=== PATIENT | male | born 1965 | race Caucasian/White ===

== ENCOUNTER 2023-07-24 16:16 | Emergency (ER) | payer SELFPAY ==
[2023-07-24] MEDS ORDERED: Nitrostat 0.4 MG (ED) SL ONE ×2 (16:20→16:37)
[2023-07-24] MEDS ORDERED: BABY ASPIRIN 81 MG CHEW PO ONE (16:20)
[2023-07-24] MEDS ORDERED: Sodium Chloride 0.9% 1000 ML 1,000 ML ONE (16:25)
[2023-07-24] MEDS: Sodium Chloride 0.9% 1000 ML 1,000 ML IV SCH ×2 (16:26→16:32)
--- NOTE | 2023-07-24 16:28 | ERPHSYRPT ---
- History of Present Illness Time Seen by Provider: 07/24/23 16:23 Historian: patient, family Exam Limitations: no limitations Physician History: pt states hx prior [facility] - no stents. 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 Pain x 35 minutes, no meds. SOBreath diaphoretic. Ext without edema. Nontender abd. Chest clear. EKG with ST dep. no cough. Quality: burning, fullness, pressure, tightness Location: substernal, shoulder Chest Pain Radiation: arm Severity of Pain-Max: moderate Severity of Pain-Current: moderate Associated Symptoms: nausea, shortness of breath Prior Chest Pain/Cardiac Workup: heart attack Nitro Today/Relief: 0.4 mg x 1, provided by ED Aspirin Treatment Today: 81 mg x 4, provided by ED Allergies/Adverse Reactions: No Known Drug Allergies Allergy (Verified 07/24/23 16:30) Home Medications: No Reportable Medications [No Reported Medications] 07/24/23 [History] - Review of Systems Constitutional: No Fever, No Chills Eyes: No Symptoms Ears, Nose, & Throat: No Symptoms Respiratory: No Cough, No Dyspnea Cardiac: Chest Pain, No Edema, No Syncope Abdominal/Gastrointestinal: Nausea, No Abdominal Pain, No Vomiting, No Diarrhea Genitourinary Symptoms: No Dysuria Musculoskeletal: No Back Pain, No Neck Pain Skin: No Symptoms, No Rash Neurological: No Dizziness, No Focal Weakness, No Sensory Changes Psychological: No Symptoms Endocrine: No Symptoms Hematologic/Lymphatic: No Symptoms Immunological/Allergic: No Symptoms All Other Systems: Reviewed and Negative - Past Medical History Pertinent Past Medical History: Yes Cardiac History: Myocardial Infarction ([facility]) - Nursing Vital Signs Nursing Vital Signs: Initial Vital Signs Temperature 97.2 F 07/24/23 16:17 Pulse Rate 92 H 07/24/23 16:17 Respiratory Rate 22 07/24/23 16:17 Blood Pressure 256/137 07/24/23 16:17 O2 Sat by Pulse Oximetry 98 07/24/23 16:17 Pain Scale Pain Intensity 4 - Physical Exam General Appearance: moderate distress, alert Eye Exam: PERRL/EOMI, eyes nml inspection Ears, Nose, Throat Exam: normal ENT inspection, moist mucous membranes Neck Exam: normal inspection, non-tender, supple, full range of motion Respiratory Exam: normal breath sounds, lungs clear, No respiratory distress Cardiovascular Exam: regular rate/rhythm, normal heart sounds Gastrointestinal/Abdomen Exam: soft, No tenderness, No mass Rectal Exam: deferred Back Exam: normal inspection, No CVA tenderness, No vertebral tenderness Extremity Exam: normal inspection, normal range of motion Neurologic Exam: alert, oriented x 3, cooperative, normal mood/affect, sensation nml, No motor deficits Skin Exam: normal color, warm, dry SpO2 Interpretation: normal SpO2: 96 O2 Delivery: Room Air - Course Nursing assessment & vital signs reviewed: Yes EKG Interpreted by Me: Sinus Rhythm, prolonged QT interval, Ischemic ST-T changes, Other (LVH) Ordered Tests: Active Orders 24 hr Category Date Time Status Sheep Farmer STAT Care 07/24/23 16:21 Active Pulse Oximetry (ED) STAT Care 07/24/23 16:20 Active CHEST 1 VIEW (PORTABLE) Stat Exams 07/24/23 16:21 Taken AMYLASE Stat Lab 07/24/23 16:10 Completed CBC W DIFF Stat Lab 07/24/23 16:10 Completed CK-Creatinine Phosphokinase Stat Lab 07/24/23 16:10 Completed CMP Stat Lab 07/24/23 16:10 Completed D-DIMER QUANTITATIVE Stat Lab 07/24/23 16:10 Completed LIPASE Stat Lab 07/24/23 16:10 Completed Lactic Acid Stat Lab 07/24/23 16:25 Completed NT PRO BNPII Stat Lab 07/24/23 16:10 Completed TROPONIN Q4H Lab 07/24/23 16:10 Completed TROPONIN Q4H Lab 07/24/23 20:30 Ordered TROPONIN Q4H Lab 07/25/23 00:30 Ordered UA W/RFX UR CULTURE Stat Lab 07/24/23 16:21 Ordered Medication Summary Generic Name Dose Route Start Last Admin Trade Name Freq PRN Reason Stop Dose Admin Sodium Chloride 1,000 mls @ 100 mls/hr 07/24/23 16:30 07/24/23 16:32 Sodium Chloride 0.9% 1000 Ml IV 08/23/23 16:29 100 mls/hr .Q10H CASE Administration Discontinued Medications Generic Name Dose Route Start Last Admin Trade Name Freq PRN Reason Stop Dose Admin Aspirin 324 mg 07/24/23 16:20 07/24/23 16:26 Aspirin 81 Mg Tab.Chew PO 07/24/23 16:21 Not Given STAT ONE Diphenhydramine HCl 25 mg 07/24/23 16:38 07/24/23 16:42 Diphenhydramine Hcl 50 Mg/Ml Vial IV 07/24/23 16:39 25 mg STAT ONE Administration Diphenhydramine HCl Confirm 07/24/23 16:42 Diphenhydramine Hcl 50 Mg/Ml Vial Administered 07/24/23 16:43 Dose 50 mg .ROUTE .STK-MED ONE Morphine Sulfate 4 mg 07/24/23 16:38 07/24/23 16:40 Morphine Sulfate 4 Mg/Ml Injection IV 07/24/23 16:39 4 mg STAT ONE Administration Morphine Sulfate Confirm 07/24/23 16:39 Morphine Sulfate 4 Mg/Ml Injection Administered 07/24/23 16:40 Dose 4 mg .ROUTE .STK-MED ONE Nitroglycerin 0.4 mg 07/24/23 16:20 07/24/23 16:32 Nitroglycerin 0.4 Mg (Ed) 0.4 Mg Tab.Subl SL 07/24/23 16:21 0.4 mg STAT ONE Administration Nitroglycerin 0.4 mg 07/24/23 16:37 07/24/23 16:40 Nitroglycerin 0.4 Mg (Ed) 0.4 Mg Tab.Subl SL 07/24/23 16:38 0.4 mg STAT ONE Administration Lab/Rad Data: Laboratory Result Diagrams 07/24/23 16:10 07/24/23 16:10 Laboratory Results 07/24/23 07/24/23 07/24/23 Range/Units 16:25 16:10 16:10 WBC (4.0-10.5) x10^3/uL RBC (4.1-5.6) x10^6/uL Hgb (12.5-18.0) g/dL Hct (42-50) % MCV (78-100) fL MCH (26-32) pg MCHC (32-36) g/dL RDW (11.5-14.0) % Plt Count (150-450) x10^3/uL MPV (7.5-11.0) fL Gran % (36.0-66.0) % Immature Gran % (Auto) (0.00-0.4) % Nucleat RBC Rel Count (0.00-0.1) % Eos # (Auto) (0-0.5) x10^3/uL Immature Gran # (Auto) (0.00-0.03) x10^3u/L Absolute Lymphs (auto) (1.0-4.6) x10^3/uL Absolute Monos (auto) (0.0-1.3) x10^3/uL Absolute Nucleated RBC (0.00-0.01) x10^3u/L Lymphocytes % (24.0-44.0) % Monocytes % (0.0-12.0) % Eosinophils % (0.00-5.0) % Basophils % (0.0-0.4) % Absolute Granulocytes (1.4-6.9) x10^3/uL Basophils # (0-0.4) x10^3/uL D-Dimer 0.45 (0.0-0.50) mg/L Sodium (137-145) mmol/L Potassium (3.5-5.1) mmol/L Chloride (98-107) mmol/L Carbon Dioxide (22-30) mmol/L Anion Gap (5-15) MEQ/L BUN (9-20) mg/dL Creatinine (0.66-1.25) mg/dL Estimated GFR ML/MIN Glucose (74-106) mg/dL Lactic Acid 2.3 H (0.4-2.0) Calcium (8.4-10.2) mg/dL Total Bilirubin (0.2-1.3) mg/dL AST (17-59) U/L ALT (0-50) U/L Alkaline Phosphatase (38-126) U/L Creatine Kinase (55-170) U/L Troponin I 0.037 H* (0.000-0.034) ng/mL NT-Pro-B Natriuret Pep 1020 (<300) pg/mL Serum Total Protein (6.3-8.2) g/dL Albumin (3.5-5.0) g/dL Amylase (30-110) U/L Lipase (23-300) U/L 07/24/23 07/24/23 Range/Units 16:10 16:10 WBC 10.3 (4.0-10.5) x10^3/uL RBC 5.66 H (4.1-5.6) x10^6/uL Hgb 17.3 (12.5-18.0) g/dL Hct 53.2 H (42-50) % MCV 94.0 (78-100) fL MCH 30.6 (26-32) pg MCHC 32.5 (32-36) g/dL RDW 13.4 (11.5-14.0) % Plt Count 262 (150-450) x10^3/uL MPV 10.4 (7.5-11.0) fL Gran % 58.4 (36.0-66.0) % Immature Gran % (Auto) 0.3 (0.00-0.4) % Nucleat RBC Rel Count 0.0 (0.00-0.1) % Eos # (Auto) 0.27 (0-0.5) x10^3/uL Immature Gran # (Auto) 0.03 (0.00-0.03) x10^3u/L Absolute Lymphs (auto) 3.12 (1.0-4.6) x10^3/uL Absolute Monos (auto) 0.79 (0.0-1.3) x10^3/uL Absolute Nucleated RBC 0.00 (0.00-0.01) x10^3u/L Lymphocytes % 30.2 (24.0-44.0) % Monocytes % 7.6 (0.0-12.0) % Eosinophils % 2.6 (0.00-5.0) % Basophils % 0.9 (0.0-0.4) % Absolute Granulocytes 6.04 (1.4-6.9) x10^3/uL Basophils # 0.09 (0-0.4) x10^3/uL D-Dimer (0.0-0.50) mg/L Sodium 144 (137-145) mmol/L Potassium 4.2 (3.5-5.1) mmol/L Chloride 102 (98-107) mmol/L Carbon Dioxide 31 H (22-30) mmol/L Anion Gap 14.3 (5-15) MEQ/L BUN 15 (9-20) mg/dL Creatinine 1.26 H (0.66-1.25) mg/dL Estimated GFR > 60.0 ML/MIN Glucose 109 H (74-106) mg/dL Lactic Acid (0.4-2.0) Calcium 10.1 (8.4-10.2) mg/dL Total Bilirubin 0.50 (0.2-1.3) mg/dL AST 35 (17-59) U/L ALT 31 (0-50) U/L Alkaline Phosphatase 104 (38-126) U/L Creatine Kinase 69 (55-170) U/L Troponin I (0.000-0.034) ng/mL NT-Pro-B Natriuret Pep (<300) pg/mL Serum Total Protein 8.2 (6.3-8.2) g/dL Albumin 5.1 H (3.5-5.0) g/dL Amylase 68 (30-110) U/L Lipase 155 (23-300) U/L - Progress Progress: improved, re-examined Air Movement: good Progress Note: 07/24/23 17:24 positive trop called regional ER and they and pt agree for transfer to be near cardio capability. Blood Culture(s) Obtained: No Antibiotics given: No Discussed with : Other ([facility] ) Will see patient in: ED Counseled pt/family regarding: lab results, diagnosis, need for follow-up, rad results Medical Desision Making - Independent Historian Additional History obtained from: Spouse - Diagnostic Testing Diagnostic test were ordered, analyzed, and reviewed by me: Yes Radiological Interpretation: Reviewed by me - Risk of complications The pt has a high risk of morbidity or mortality based on: Decision regarding hospitilization or escalation of hosp level of care - Departure Departure Disposition: Transfer Clinical Impression: CHest pain - elevated trop Condition: Good Critical Care Time: No
[2023-07-24 16:30] VITALS: TEMP 97.2
[2023-07-24 16:35] LABS: Absolute Neutrophil Ct (ANC) 6.04 x10^3/uL (1.4-6.9); BASOPHIL % 0.9 % (0.0-0.4); Basophil (Absolute #) 0.09 x10^3/uL (0-0.4); Eosinophil % 2.6 % (0.00-5.0); Eosinophil (Absolute #) 0.27 x10^3/uL (0-0.5); Hematocrit 53.2 % (42-50); Hemoglobin 17.3 g/dL (12.5-18.0); IMMATURE GRAN # 0.03 x10^3u/L (0.00-0.03); IMMATURE GRAN % 0.3 % (0.00-0.4); Lymphocyte (Absolute #) 3.12 x10^3/uL (1.0-4.6); Lymphocytes % 30.2 % (24.0-44.0); Mean Corpuscular Hemoglobin 30.6 pg (26-32); Mean Corpuscular Hgb Concent. 32.5 g/dL (32-36); Mean Platelet Volume 10.4 fL (7.5-11.0); Monocyte (Absolute #) 0.79 x10^3/uL (0.0-1.3); Monocytes % 7.6 % (0.0-12.0); Neutrophil % 58.4 % (36.0-66.0); Platelet Count 262 x10^3/uL (150-450); Red Blood Count 5.66 x10^6/uL (4.1-5.6); Red Cell Distribution Width 13.4 % (11.5-14.0); White Blood Count 10.3 x10^3/uL (4.0-10.5)
[2023-07-24] MEDS ORDERED: MORPHINE SULFATE 4 MG INJ IV ONE (16:38)
[2023-07-24] MEDS ORDERED: BENADRYL 50 MG/ML IV ONE (16:38)
[2023-07-24] MEDS ORDERED: MORPHINE SULFATE 4 MG INJ ONE (16:39)
[2023-07-24] MEDS ORDERED: BENADRYL 50 MG/ML ONE (16:42)
[2023-07-24 16:52] LABS: ALBUMIN 5.1 g/dL (3.5-5.0); ALKALINE PHOSPHATASE 104 U/L (38-126); AMYLASE 68 U/L (30-110); ANION GAP 14.3 MEQ/L (5-15); BLOOD UREA NITROGEN 15 mg/dL (9-20); CHLORIDE 102 mmol/L (98-107); CK-Creatinine Phosphokinase 69 U/L (55-170); Calcium 10.1 mg/dL (8.4-10.2); Carbon Dioxide 31 mmol/L (22-30); Creatinine 1 1.26 mg/dL (0.66-1.25); EST GLOMERULAR FILTRATION RATE > 60.0 ML/MIN; Glucose 109 mg/dL (74-106); LIPASE 155 U/L (23-300); Potassium 4.2 mmol/L (3.5-5.1); SGOT/AST 35 U/L (17-59); SGPT/ALT 31 U/L (0-50); SODIUM 144 mmol/L (137-145); Total Protein 8.2 g/dL (6.3-8.2)
[2023-07-24 17:15] VITALS: BP 185/101; PULSE 88; RESP 17
[2023-07-24 17:24] LABS: TROPONIN 0.037 ng/mL (0.000-0.034)
[2023-07-24 17:27] VITALS: O2SAT 96
--- NOTE | 2023-07-24 20:05 | XRAY ---
Indication: Chest pain. Comparison: None Portable chest demonstrates normal heart and lungs. Bony thorax intact.
== END 2023-07-24 17:58 | disposition short-term general hospital (02) ==
LOC: ED 16:16
DX: R07.9 Chest pain, unspecified (principal); R77.8 Other specified abnormalities of plasma proteins
CPT/HCPCS: 36415; 71045; 80053; 82150; 82550; 83605; 83690; 83880; 84484; 85025; 85379; 93041; 94760; 96374; 96375; 99285; J1200; J2270; A9270-GY